=== PATIENT | female | born 1960 | race Caucasian/White ===

== ENCOUNTER → 2017-01-30 | Outpatient (CLI) | payer OTHER ==
--- NOTE | 2017-01-30 12:35 | RADRPT ---
EXAM DATE/TIME: 01/30/2017 12:17 [place] COMPARISON: No previous studies available for comparison. INDICATIONS : Right knee pain, injured while exercising. MEDICAL HISTORY : None. SURGICAL HISTORY : None. ENCOUNTER: Initial ACUITY: 1 day PAIN SCORE: 8/10 LOCATION: Right anterior knee FINDINGS: There is moderate arthritic change with joint space narrowing and osteophyte formation most prominent in the medial compartment. There is no evidence of joint effusion or fracture. Mineralization is sat isfactory. Soft tissues are focally unremarkable. CONCLUSION: Arthritic changes. No acute bony findings. Farshad Cuevas MD on January 30, 2017 at 12:32 Board Certified Radiologist. This report was verified electronically.
== END ==
LOC: HRAD 11:47
DX: M25.561 Pain in right knee (principal)
CPT/HCPCS: 73564